=== PATIENT | male | born 1960 | race Caucasian/White ===

== ENCOUNTER 2017-06-29 13:12 | Emergency (ER) | payer OTHER ==
[2017-06-29 13:13] VITALS: BMI 32.1
[2017-06-29 13:40] VITALS: RESP 18; TEMP 98.9; O2SAT 98
[2017-06-29] MEDS ORDERED: Sodium Chloride 0.9% 1,000 ML IV STA (13:45)
--- NOTE | 2017-06-29 13:48 | ED PDOC ---
Arrival/HPI - General Chief Complaint: Male Genitourinary Time Seen by Provider: 06/29/17 13:36 Historian: Patient - History of Present Illness Narrative History of Present Illness (Text): 06/29/17 13:40 pt p/w + 2 weeks onset of daily suprapubic burning/pain with increasing urination, particularly after drinking/eating; pt states the symptoms are persistent; pt states no fever/chills/sweats, no cp/sob/palpitations, no mid/ upper abd pain, no n/v, no appetite changes, no bowel changes, no dysuria/ hematuria/urinary frequency; pt states no numbness/tingling; pt denied any urinary/bowel incontinence; pt denied fall/trauma/sick contact/travel. pt is here for further eval pt's without other complaints. pt had been seen/eval by his PCP at the [facility] 2 days ago, and was referred to Urology; pt states the symptoms are bothering him and he wants to know whats going on; leading pt to come to ED today for eval PCP: at [facility], Dr Montez? hx of MS Time/Duration: Other (2 weeks) Symptom Onset: Sudden Symptom Course: Unchanged Quality: Burning Severity Level: Mild Activities at Onset: Rest Context: Home Past Medical History - Provider Review Nursing Documentation Reviewed: Yes - Travel History Have you recently traveled outside [place] w/in the past 3 mons?: No - Past History Past History: No Previous - Infectious Disease Hx of Infectious Diseases: None - Tetanus Immunization Tetanus Immunization: Unknown - Reproductive Currently Lactating: No - Cardiac Hx Hypertension: Yes - Pulmonary Hx Respiratory Disorders: Yes - Neurological Hx Dizziness: Yes Hx Multiple Sclerosis: Yes - HEENT Hx HEENT Disorder: No - Musculoskeletal/Rheumatological Hx Falls: No Hx Unsteady Gait: Yes - Psychiatric Hx Depression: No Hx Emotional Abuse: No Hx Physical Abuse: No Hx Substance Use: No - Surgical History Hx Splenectomy: Yes - Suicidal Assessment Feels Threatened In Home Enviroment: No Family/Social History - Physician Review Nursing Documentation Reviewed: Yes Family/Social History: No Known Family HX Smoking Status: Former Smoker Hx Alcohol Use: Yes (Moderate) Hx Substance Use: No Hx Substance Use Treatment: No Allergies/Home Meds Allergies/Adverse Reactions: Allergies No Known Allergies Allergy (Verified 06/29/17 13:25) Home Medications: Home Meds Medication Instructions Recorded Confirmed Interferon Beta-1a0.5mlim Qwk 1 dose IV QWK 08/22/12 06/29/17 Review of Systems - Review of Systems Constitutional: Normal Eyes: Normal ENT: Normal Respiratory: Normal Cardiovascular: Normal Gastrointestinal: Abdominal Pain Genitourinary Male: Other (urinary changes) Musculoskeletal: Normal Skin: Normal Neurological: Normal Endocrine: Normal Hemo/Lymphatic: Normal Psychiatric: Normal Physical Exam Vital Signs Reviewed: Yes Vital Signs Temp Pulse Resp BP Pulse Ox 06/29/17 13:13 98.9 F 90 18 130/79 98 Temperature: Afebrile Blood Pressure: Normal Pulse: Regular Respiratory Rate: Normal Appearance: Positive for: Well-Appearing, Non-Toxic, Uncomfortable, Other (alert /awake, GCS = 15, oriented x 3, NAD, mildly uncomfortable, resting in bed) Pain Distress: None Mental Status: Positive for: Alert and Oriented X 3 - Systems Exam Head: Present: Atraumatic, Normocephalic Pupils: Present: PERRL, Other (visual field intact b/l, no nystagmus, no photophobia, sclera anicteric) Extroacular Muscles: Present: EOMI Conjunctiva: Present: Normal Ears: Present: Normal Mouth: Present: Moist Mucous Membranes, Other (poor dentitions, no drooling/ stridor, no exudate/lesions, uvual/tongue are midline) Pharnyx: Present: Normal Nose (External): Present: Atraumatic Nose (Internal): Present: Normal Inspection Neck: Present: Normal Range of Motion, Trachea Midline, Other (no step off, no midline tenderness). No: Meningeal Signs, MIDLINE TENDERNESS Respiratory/Chest: Present: Clear to Auscultation, Good Air Exchange, Other ( CTA b/l, no w/r/r, no accessory muscle use noted, no tachypenia). No: Respiratory Distress, Accessory Muscle Use, Wheezes Cardiovascular: Present: Regular Rate and Rhythm, Normal S1, S2. No: Murmurs Abdomen: Present: Normal Bowel Sounds, Other (well nourished male, no focal tenderness, no masses/rebound/guarding/rigidity, no argueta's sign, no mcburney' s point tenderness) Back: Present: Normal Inspection. No: CVA Tenderness, Midline Tenderness Upper Extremity: Present: Normal Inspection, Normal ROM, NORMAL PULSES, Neurovascularly Intact, Capillary Refill < 2s Lower Extremity: Present: Normal Inspection, NORMAL PULSES, Normal ROM, Neurovascularly Intact, Capillary Refill < 2 s, Other (+ ambulatory) Neurological: Present: GCS=15, CN II-XII Intact, Speech Normal Skin: Present: Warm, Normal Color, Other (cap refill < 1sec, no ulcerations, no petechiae, no rashes). No: Rashes Psychiatric: Present: Alert, Oriented x 3 Medical Decision Making ED Course and Treatment: 06/29/17 13:48 Impression: suprapubic burning/urinary changes i have consider all the differential diagnosis regarding pt's chief medical complaints/clinical findings, including but are not limited to: suprapubic burning/urinary changes A/P: suprapubic burning/urinary changes - labs - ua - ct - supportive care - observe/reevaluation 06/29/17 16:47 pt is not in any distress currently pt is comfortable pt is made aware of his medical results pt is encouraged outpt f/u pt will be discharged home Re-evaluation Time: 16:44 Reassessment Condition: Unchanged - Lab Interpretations Lab Results: 06/29/17 14:12 06/29/17 14:12 Lab Results 06/29/17 14:12: Sodium 144, Chloride 105, Potassium 4.1, Carbon Dioxide 25, Anion Gap 17, BUN 13, Creatinine 0.7 L, Est GFR ( Amer) > 60, Est GFR ( Non-Af Amer) > 60, Random Glucose 103, Calcium 9.5, Total Bilirubin 1.0, AST 31 , ALT 32, Alkaline Phosphatase 79, Total Protein 8.1, Albumin 4.6, Globulin 3.5 , Albumin/Globulin Ratio 1.3, Lipase 137 06/29/17 14:12: pO2 158 H, VBG pH 7.41, VBG pCO2 41.0, VBG HCO3 26.0, VBG Total CO2 27.3, VBG O2 Sat (Calc) 100.1 H, VBG Base Excess 1.2, VBG Potassium 4.0, Sodium 140.0, Chloride 107.0, Glucose 104, Lactate 1.0, FiO2 21.0, Venous Blood Potassium 4.0 06/29/17 14:12: Urine Color yellow, Urine Appearance Clear, Urine pH 7.5, Ur Specific [place] 1.015, Urine Protein Negative, Urine Glucose (UA) Negative, Urine Ketones Negative, Urine Blood Negative, Urine Nitrate Negative, Urine Bilirubin Negative, Urine Urobilinogen 0.2, Ur Leukocyte Esterase Negative 06/29/17 14:12: PT 11.9, INR 1.04, APTT 31.9 06/29/17 14:12: WBC 12.9 H D, RBC 5.02, Hgb 15.7, Hct 45.9, MCV 91.4, MCH 31.3, MCHC 34.2, RDW 14.4, Plt Count 315, MPV 10.7, Gran % 51.2, Lymph % (Auto) 32.4, [place] % (Auto) 12.8 H, Eos % (Auto) 3.1, Baso % (Auto) 0.5, Gran # 6.63 H, Lymph # (Auto) 4.[address], [place] # (Auto) 1.7 H, Eos # (Auto) 0.4, Baso # (Auto) 0.06 I have reviewed the lab results: Yes Interpretation: All labs normal - RAD Interpretation Narrative RAD Interpretations (Text): 06/29/17 16:45 PROCEDURE: CT scan abdomen pelvis dated 06/29/2017 HISTORY: Suprapubic burning/pain, urinary changes; history of MS COMPARISON: Comparison made with prior CT scan chest 06/20/2013 which image the upper abdomen TECHNIQUE: Contiguous axial images of the abdomen and pelvis performed following intravenous injection of approximately 100 cc of Omnipaque 350 contrast material. Additional 2 dimensional sagittal and coronal reformats generated. Radiation dose: Total exam DLP = This CT exam was performed using one or more of the following dose reduction techniques: Automated exposure control, adjustment of the mA and/or kV according to patient size, and/or use of iterative reconstruction technique. FINDINGS: LOWER THORAX: Heart size within range of normal. No significant pericardial effusion. Minor passive/dependent type atelectasis both lung bases. Lung bases are otherwise clear focal consolidation or effusion. . There is a small hiatal hernia with wall thickening of the distal esophagus likely due to protrusion of gastric mucosa. Possibility of esophagitis or other intrinsic/ invasive wall lesion should not excluded. LIVER: Liver measures approximately 18 cm in CC dimension. No obvious hepatic mass or collection. Portal and splenic veins are opacified. GALLBLADDER AND BILE DUCTS: Gallbladder appears incompletely distended which may account for slight thick- walled appearance. This is likely due to nonfasting state. Clinical correlation recommended. PANCREAS: The pancreas appears somewhat atrophic and fatty replaced. No pancreatic mass collection or calcification. SPLEEN: What could represent a tiny spleen/ splenules left upper quadrant of the abdomen. Clinical correlation recommended to exclude the possibility of any prior splenectomy. ADRENALS: There are no adrenal lesions. KIDNEYS AND URETERS: Kidneys demonstrate relatively symmetric nephrograms. No evidence of nephrolithiasis or hydronephrosis. BLADDER: Urinary bladder is incompletely distended which in part accounts for thick- walled appearance. Muscular hypertrophy also presumably contributes however the possibility of a cystitis must be considered given the patient's history of suprapubic of burning sensation. REPRODUCTIVE: Prostate gland measures approximately 4.3 cm in transverse dimension. APPENDIX: Normal-appearing appendix best seen on axial image number [id number]. BOWEL: Evaluation of the bowel is limited due to the lack of oral contrast material. The stomach is distended with food debris liquid and air. Visualized loops of small bowel exhibit relatively normal contour and caliber. No evidence acute mechanical small bowel obstruction. Multiple colonic diverticula are seen arising from the sigmoid and descending colon. No definitive radiographic evidence of acute diverticulitis. PERITONEUM: Unremarkable. No fluid collection. No free air. Small fat containing umbilical hernia. There is also small fat containing left inguinal hernia. LYMPH NODES: Unremarkable. No enlarged lymph nodes. VASCULATURE: Unremarkable. No aortic aneurysm. No evidence of abdominal aortic or iliac artery aneurysm. BONES: Mild multilevel degenerative spondylosis of the lower thoracic and lumbar spine. There are no acute compression fractures no retropulsed fragments. Vague sclerotic changes seen in the left iliac bone nonspecific. OTHER FINDINGS: None. IMPRESSION: Urinary bladder is incompletely distended which in part accounts for thick- walled appearance. Muscular hypertrophy may contribute. Possibility of cystitis given the patient's history of burning sensation in the suprapubic region should be considered ; clinical correlation with urinalysis followup. Diverticulosis without radiographic evidence of acute diverticulitis. Possible small splenules left upper quadrant of the abdomen. A normal- appearing spleen is not present to clinic correlation with surgical history to the possibility of a prior splenectomy. Small hiatal hernia with wall thickening of the distal esophagus in part due to protrusion of gastric mucosa however esophagitis or other intrinsic/invasive wall lesion not excluded. See above discussion for additional details and findings. 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 No Sleep Is patient sleeping during reassessment? No Presence of Pain Presence of Pain Yes Pain Scale Used Pain Scale Used Numeric Location Pain Location Body Site Abdomen Description Description Pressure IVP Administration Document 06/29/17 14:18 EWO (Rec: 06/29/17 14:18 EWO [id number]) Charges for Administration # of IVP Administrations 1 Re-Assess: ANNA Pain Assessment Document 06/29/17 15:18 EWO (Rec: 06/29/17 15:37 EWO [id number]) Pain Reassessment Is this a pain reassessment? Yes Sleep Is patient sleeping during reassessment? No Presence of Pain Presence of Pain No Pain Scale Used Pain Scale Used Numeric Disposition/Present on Arrival - Present on Arrival Any Indicators Present on Arrival: No History of DVT/PE: No History of Uncontrolled Diabetes: No Urinary Catheter: No History of Decub. Ulcer: No History Surgical Site Infection Following: None - Disposition Have Diagnosis and Disposition been Completed?: Yes Diagnosis: Suprapubic abdominal burning sensation, Urinary disorder Disposition: HOME/ ROUTINE Disposition Time: 16:49 Patient Plan: Discharge Patient Problems: Current Active Problems Problem Status Onset Suprapubic abdominal burning sensation Acute Urinary disorder Acute Condition: STABLE Discharge Instructions (ExitCare): Yearly Physical for Adults Print Language: ARABIC Additional Instructions: Make sure to see your doctor in 1-2 days DRINK PLENTY OF FLUIDS take your medications as prescribed RETURN TO ED IF worse pain, cant breath, persistent vomiting, high fever >101- 102 for hours, altered behavior, slurr speech, facial changes, focal weakness ( arm/leg or both), unable to urinate, heavy/persistent bleeding, passing out, chest pain, or other medical emergencies Referrals: Chase Stinson MD [Staff Provider] - Follow up with primary Adis Dumont MD [Staff Provider] - Follow up with primary Forms: [facility] (Hebrew)
[2017-06-29 14:22] LABS: BASO # 0.06 K/mm3 (0.0-2.0); BASO % 0.5 % (0.0-3.0); EOS # 0.4 (0.0-0.7); EOS % 3.1 % (1.5-5.0); GRAN # 6.63 (1.4-6.5); GRAN % 51.2 % (50.0-68.0); HEMOGLOBIN 15.7 g/dL (14.0-18.0); LYMPH # 4.2 (1.2-3.4); LYMPH % 32.4 % (22.0-35.0); MEAN CELL VOLUME 91.4 fl (80.0-105.0); MEAN CORPUSCULAR HEMOGLOBIN 31.3 pg (25.0-35.0); MEAN CORPUSCULAR HGB CONC 34.2 g/dl (31.0-37.0); MEAN PLATELET VOLUME 10.7 fl (7.0-11.0); MONO # 1.7 (0.1-0.6); MONO % 12.8 % (1.0-6.0); RBC 5.02 10^6/uL (3.5-6.1); RED CELL DISTRIBUTION WIDTH 14.4 % (11.5-14.5); WHITE BLOOD COUNT 12.9 10^3/ul (4.5-11.0)
[2017-06-29 14:23] LABS: VENOUS BLOOD GAS BASE EXCESS 1.2 mmol/L (0.0-2.0); VENOUS BLOOD GAS PO2 158 mm/Hg (30-55); VENOUS BLOOD PH 7.41 (7.32-7.43)
[2017-06-29 14:28] LABS: ALB/GLOB RATIO 1.3 (1.1-1.8); ALBUMIN 4.6 g/dL (3.0-4.8); ALT/SGPT 32 U/L (7-56); AST/SGOT 31 U/L (17-59); BLOOD UREA NITROGEN 13 mg/dL (7-21); CALCIUM 9.5 mg/dL (8.4-10.5); GFR AFRICAN-AMERICAN > 60; GFR NON-AFRICAN AMERICAN > 60; LIPASE 137 U/L (23-300)
[2017-06-29 14:29] LABS: PH,URINE 7.5 (4.7-8.0); URINE BILIRUBIN NEGATIVE (NEGATIVE); URINE BLOOD NEGATIVE (NEGATIVE); URINE GLUCOSE (UA) NEGATIVE (NEGATIVE); URINE LEUKOCYTE ESTERASE NEGATIVE Leu/uL (NEGATIVE); URINE UROBILINOGEN 0.2 E.U./dL (<1 E.U./dL)
[2017-06-29 14:32] LABS: URINE APPEARANCE CLEAR (CLEAR); URINE PROTEIN NEGATIVE mg/dL (<30 mg/dL)
[2017-06-29 14:38] LABS: INR 1.04 (0.93-1.08); PARTIAL THROMBOPLASTIN TIME 31.9 Seconds (25.1-36.5); PROTHROMBIN TIME 11.9 SECONDS (9.4-12.5)
[2017-06-29] MEDS ORDERED: Iohexol 350 MG/100 ML VIAL ONE (14:44)
--- NOTE | 2017-06-29 15:46 | CT ---
PROCEDURE: CT scan abdomen pelvis dated 06/29/2017 HISTORY: Suprapubic burning/pain, urinary changes; history of MS COMPARISON: Comparison made with prior CT scan chest 06/20/2013 which image the upper abdomen TECHNIQUE: Contiguous axial images of the abdomen and pelvis performed following intravenous injection of approximately 100 cc of Omnipaque 350 contrast material. Additional 2 dimensional sagittal and coronal reformats generated. Radiation dose: Total exam DLP = This CT exam was performed using one or more of the following dose reduction techniques: Automated exposure control, adjustment of the mA and/or kV according to patient size, and/or use of iterative reconstruction technique. FINDINGS: LOWER THORAX: Heart size within range of normal. No significant pericardial effusion. Minor passive/dependent type atelectasis both lung bases. Lung bases are otherwise clear focal consolidation or effusion. . There is a small hiatal hernia with wall thickening of the distal esophagus likely due to protrusion of gastric mucosa. Possibility of esophagitis or other intrinsic/ invasive wall lesion should not excluded. LIVER: Liver measures approximately 18 cm in CC dimension. No obvious hepatic mass or collection. Portal and splenic veins are opacified. GALLBLADDER AND BILE DUCTS: Gallbladder appears incompletely distended which may account for slight thick-walled appearance. This is likely due to nonfasting state. Clinical correlation recommended. PANCREAS: The pancreas appears somewhat atrophic and fatty replaced. No pancreatic mass collection or calcification. SPLEEN: What could represent a tiny spleen/ splenules left upper quadrant of the abdomen. Clinical correlation recommended to exclude the possibility of any prior splenectomy. ADRENALS: There are no adrenal lesions. KIDNEYS AND URETERS: Kidneys demonstrate relatively symmetric nephrograms. No evidence of nephrolithiasis or hydronephrosis. BLADDER: Urinary bladder is incompletely distended which in part accounts for thick-walled appearance. Muscular hypertrophy also presumably contributes however the possibility of a cystitis must be considered given the patient's history of suprapubic of burning sensation. REPRODUCTIVE: Prostate gland measures approximately 4.3 cm in transverse dimension. APPENDIX: Normal-appearing appendix best seen on axial image number [id number]. BOWEL: Evaluation of the bowel is limited due to the lack of oral contrast material. The stomach is distended with food debris liquid and air. Visualized loops of small bowel exhibit relatively normal contour and caliber. No evidence acute mechanical small bowel obstruction. Multiple colonic diverticula are seen arising from the sigmoid and descending colon. No definitive radiographic evidence of acute diverticulitis. PERITONEUM: Unremarkable. No fluid collection. No free air. Small fat containing umbilical hernia. There is also small fat containing left inguinal hernia. LYMPH NODES: Unremarkable. No enlarged lymph nodes. VASCULATURE: Unremarkable. No aortic aneurysm. No evidence of abdominal aortic or iliac artery aneurysm. BONES: Mild multilevel degenerative spondylosis of the lower thoracic and lumbar spine. There are no acute compression fractures no retropulsed fragments. Vague sclerotic changes seen in the left iliac bone nonspecific. OTHER FINDINGS: None. IMPRESSION: Urinary bladder is incompletely distended which in part accounts for thick-walled appearance. Muscular hypertrophy may contribute. Possibility of cystitis given the patient's history of burning sensation in the suprapubic region should be considered ; clinical correlation with urinalysis followup. Diverticulosis without radiographic evidence of acute diverticulitis. Possible small splenules left upper quadrant of the abdomen. A normal-appearing spleen is not present to clinic correlation with surgical history to the possibility of a prior splenectomy. Small hiatal hernia with wall thickening of the distal esophagus in part due to protrusion of gastric mucosa however esophagitis or other intrinsic/invasive wall lesion not excluded. See above discussion for additional details and findings.
[2017-06-29 17:04] VITALS: BP 132/80; PULSE 88
== END 2017-06-29 17:04 | disposition home or self-care (01) ==
LOC: ED 13:12
DX: N39.9 Disorder of urinary system, unspecified (principal); R10.30 Lower abdominal pain, unspecified; I10 Essential (primary) hypertension; G35 Multiple sclerosis; Z87.891 Personal history of nicotine dependence
CPT/HCPCS: 74177; 80053; 81003; 82803; 83690; 85025; 85610; 85730; 96374; 99283; J1885; J7040; Q9967